=== PATIENT | male | born 1955 | race Caucasian/White ===

== ENCOUNTER 2018-12-19 07:29 | Emergency (ER) | payer BC ==
[~2018-12-19] VITALS: Ht 182.9 cm; Wt 99.8 kg
[~2018-12-19 07:29] MED LIST: AMLODIPINE; FLOMAX PO; HCTZ; LOTENSIN; NORCO 5-325 TA1 EACH PO; POTASSIUM20; ZOFRAN 4 MG ORAL4 M1 DIS
[2018-12-19] MEDS ORDERED: BYSTOLIC 5 MG5 M1 PO (07:46)
[2018-12-19] MEDS ORDERED: EDARBYCLOR 40-1 EACH PO (07:49)
[2018-12-19] MEDS ORDERED: FLONASE 0.05%50 MCG NASAL (08:35)
[2018-12-19] MEDS ORDERED: CARDIZEM CD120 MG PO (08:35)
[2018-12-19 08:59] VITALS: BP 136/79
== END 2018-12-19 08:59 | disposition home or self-care (01) ==
LOC: ER 07:29
DX: S01.01XA Laceration without foreign body of scalp, initial encounter (principal); S30.810A Abrasion of lower back and pelvis, initial encounter; I10 Essential (primary) hypertension; Z90.49 Acquired absence of other specified parts of digestive tract; W17.89XA Other fall from one level to another, initial encounter; Y93.39 Activity, other involving climbing, rappelling and jumping off; Y92.89 Other specified places as the place of occurrence of the external cause; Y99.8 Other external cause status

== ENCOUNTER → 2020-01-02 | Outpatient (CLI) | payer OTHER ==
[~2020-01-02] MED LIST changes: +BYSTOLIC 5 MG5 M1 PO; +CARDIZEM CD120 MG PO; +EDARBYCLOR 40-1 EACH PO; +FLONASE 0.05%50 MCG NASAL
== END ==
LOC: CAT 11:18
PROVIDERS: ATTEND Internal Medicine Cardiovascular Disease
DX: Z13.6 Encounter for screening for cardiovascular disorders (principal); I25.10 Atherosclerotic heart disease of native coronary artery without angina pectoris; E78.00 Pure hypercholesterolemia, unspecified